=== PATIENT | female | born 1985 | race Two or more races ===

== ENCOUNTER 2018-03-08 02:48 | Emergency (ER) | payer MEDICAID, OTHER ==
[~2018-03-08] VITALS: Ht 160 cm; Wt 59.0 kg
[2018-03-08] MEDS ORDERED: HYDROCODONE/ACETAMINOPHEN 5/325MG TABLET PO STA (03:53)
[2018-03-08] MEDS ORDERED: ONDANSETRON 4MG ODT PO STA (03:53)
[2018-03-08 04:21] LABS: BASOPHILS % 1.4 % (0.0-2.0); EOSINOPHILS % 4.9 % (0.0-5.0); HEMATOCRIT. 35.2 % (36.0-48.0); HEMOGLOBIN. 11.8 g/dL (12.0-16.0); LYMPHOCYTES % 19.5 % (20.0-50.0); MEAN CORPUSCULAR HEMOGLOBIN 28.2 pg (28.0-32.0); MEAN CORPUSCULAR VOLUME 84.2 fL (81.0-99.0); MEAN PLATELET VOLUME 8.6 fl (7.4-10.4); MONOCYTES % 7.7 % (2.0-8.0); NEUTROPHILS % 66.5 % (40.0-76.0); PLATELET 331 x1000/uL (130-400); RED BLOOD CELL COUNT 4.18 mill/uL (4.2-5.4); RED CELL DISTRIBUTION WIDTH 13.8 % (11.6-14.6)
[2018-03-08 04:27] LABS: CHLORIDE 107 mEq/L (98-107)
[2018-03-08 04:28] LABS: PROTHROMBIN TIME 9.7 sec (9.1-11.1)
[2018-03-08 04:29] LABS: HCG SCREEN NEGATIVE
[2018-03-08 05:43] LABS: CLARITY URINE CLEAR (CLEAR); COLOR URINE YELLOW (YELLOW); KETONES URINE NEGATIVE (NEGATIVE); LEUKOCYTE ESTERASE URINE TRACE (NEGATIVE); NITRITE URINE NEGATIVE (NEGATIVE); OCCULT BLOOD URINE 1+ (NEGATIVE); PROTEIN URINE NEGATIVE (NEGATIVE); SPECIFIC GRAVITY URINE 1.021 (1.005-1.030); UROBILINOGEN URINE 0.2 E.U./dL (0.2-1.0)
[2018-03-08] MEDS ORDERED: MORPHINE SULFATE 10 MG/ML CPJ IM ONE (06:00)
[2018-03-08 07:02] VITALS: BP 120/70
== END 2018-03-08 11:32 | disposition home or self-care (01) ==
LOC: ER 11:27
DX: K80.20 Calculus of gallbladder without cholecystitis without obstruction (principal); N39.0 Urinary tract infection, site not specified
CPT/HCPCS: 36415; 76705; 80053; 81003; 81025; 84703; 85025; 85610; 96372; 99285; J2270; Q0162

== ENCOUNTER 2018-03-08 16:28 | Inpatient (IN) | payer MEDICAID, OTHER ==
[~2018-03-08] VITALS: Ht 157.5 cm; Wt 59.0 kg
[2018-03-08] MEDS ORDERED: MORPHINE SULFATE 4 MG/ML CPJ (NOT FOR IM USE) IV STA (22:15)
[2018-03-08] MEDS ORDERED: SODIUM CHLORIDE 0.9% 1,000 ML IV ONE (22:15)
[2018-03-08] MEDS ORDERED: ONDANSETRON HCL 4MG/2ML INJ IV STA (22:15)
[2018-03-08 23:38] LABS: CHLORIDE 103 mEq/L (98-107)
[2018-03-08 23:39] LABS: BASOPHILS % 0.9 % (0.0-2.0); EOSINOPHILS % 4.1 % (0.0-5.0); HEMATOCRIT. 35.6 % (36.0-48.0); HEMOGLOBIN. 11.8 g/dL (12.0-16.0); LYMPHOCYTES % 29.5 % (20.0-50.0); MEAN CORPUSCULAR HEMOGLOBIN 28.1 pg (28.0-32.0); MEAN PLATELET VOLUME 8.9 fl (7.4-10.4); MONOCYTES % 7.3 % (2.0-8.0); NEUTROPHILS % 58.2 % (40.0-76.0); PLATELET 329 x1000/uL (130-400); RED BLOOD CELL COUNT 4.19 mill/uL (4.2-5.4); RED CELL DISTRIBUTION WIDTH 13.8 % (11.6-14.6)
[2018-03-08 23:56] LABS: PARTIAL THROMBOPLASTIN TIME 27.1 sec (23.4-31.0); PROTHROMBIN TIME 9.8 sec (9.1-11.1)
[2018-03-09] VITALS (7 sets, daily range): BP systolic 87–170; BP diastolic 48–67
[2018-03-09 00:04] LABS: HCG SCREEN NEGATIVE
[2018-03-09 00:20] LABS: CLARITY URINE CLOUDY (CLEAR); COLOR URINE YELLOW (YELLOW); KETONES URINE TRACE (NEGATIVE); LEUKOCYTE ESTERASE URINE 1+ (NEGATIVE); NITRITE URINE NEGATIVE (NEGATIVE); OCCULT BLOOD URINE NEGATIVE (NEGATIVE); PH URINE 6.5 (4.5-8.0); PROTEIN URINE NEGATIVE (NEGATIVE); SPECIFIC GRAVITY URINE 1.017 (1.005-1.030); UROBILINOGEN URINE 0.2 E.U./dL (0.2-1.0)
[2018-03-09] MEDS ORDERED: KETOROLAC 30MG/ML VIAL IV ONE (00:30)
[2018-03-09] MEDS ORDERED: ONDANSETRON HCL 4MG/2ML INJ IV ONE (00:30)
[2018-03-09 00:32] LABS: *AMPHETAMINES SCREEN URINE NEGATIVE (NEGATIVE)
[2018-03-09 00:33] LABS: *BENZODIAZEPINES SCREEN URINE NEGATIVE (NEGATIVE); *COCAINE SCREEN URINE NEGATIVE (NEGATIVE); METHADONE URINE SCREEN NEGATIVE (NEGATIVE); PHENCYCLIDINE URINE SCREEN NEGATIVE (NEGATIVE)
[2018-03-09 00:34] LABS: CANNABINOID URINE SCREEN NEGATIVE (NEGATIVE)
[2018-03-09 00:40] LABS: *BARBITURATES SCREEN URINE NEGATIVE (NEGATIVE); OPIATES URINE SCREEN PRESUMTIVE POSITIVE (NEGATIVE)
[2018-03-09] MEDS ORDERED: ONDANSETRON HCL 4MG/2ML INJ IV PRN (02:45)
[2018-03-09] MEDS ORDERED: MORPHINE SULFATE 4 MG/ML CPJ (NOT FOR IM USE) IV PRN (02:45)
[2018-03-09] MEDS ORDERED: ACETAMINOPHEN 325MG TABLET PO PRN (02:45)
[2018-03-09] MEDS: DEXT 5%/0.45% NACL 1000ML 1,000 ML IV SCH ×2 (02:57→10:57)
[2018-03-09] MEDS ORDERED: CEFTRIAXONE 1 G PREMIX 50 ML IV SCH (04:00)
== END 2018-03-09 19:53 | disposition short-term general hospital (02) ==
LOC: ER 16:34 → 6EST 23:45 → ENRESERV 23:55 → EDBEDREQ 03-09 00:18
PROVIDERS: ADMIT Emergency Medicine; ATTEND Emergency Medicine
DX: K80.50 Calculus of bile duct without cholangitis or cholecystitis without obstruction (principal); D64.9 Anemia, unspecified; N39.0 Urinary tract infection, site not specified
CPT/HCPCS: 36415; 78227; 80053; 80305; 81003; 83690; 84703; 85025; 85610; 85730; 96361; 96374; 96375; 96376; 99285; A9537; J0696; J1885; J2270; J2405; J3490; J7030